=== PATIENT | male | born 1950 | race Caucasian/White ===

== ENCOUNTER 2020-09-16 16:17 | Observation (INO) | payer MEDICARE, OTHER ==
[2020-09-16] MEDS ORDERED: ASPIRIN 81 MG PO STA (16:33)
[2020-09-16] MEDS ORDERED: NITROGLYCERIN OINT 1 INCH/GM PACKET TOPICAL STA (16:33)
--- NOTE | 2020-09-16 16:53 | ED ---
General Adult HPI - General Chief complaint: Recheck/Abnormal Lab/Rx Stated complaint: abnormal labs/ekg Time Seen by Provider: 09/16/20 16:20 Source: patient, RN notes reviewed, old records reviewed Mode of arrival: ambulatory Limitations: no limitations - History of Present Illness Initial comments: This is a 69-year-old male who presents emergency Department because he went in for a physical and is primary medical care doctor thought that his EKG was abnormal and then she did a troponin the troponin came back 0.037. Patient's having no symptoms. Patient denies chest pain difficulty breathing shortness of breath. Patient denies any back pain. Patient denies lightheadedness or dizziness. Patient denies any swelling to legs or calf tenderness. Patient states he feels perfectly fine. Patient denies any recent fever chills or cough. Patient states he plays ice hockey last night. - Related Data Home Medications Medication Instructions Recorded Confirmed Ascorbic Acid [Vitamin C] 1,000 mg PO HS 09/16/20 09/16/20 Aspirin EC [Ecotrin Low Dose] 81 mg PO HS 09/16/20 09/16/20 Cholecalciferol [Vitamin D3 (25 2,000 unit PO DAILY@1200 09/16/20 09/16/20 Mcg = 1000 Iu)] Lovastatin [Mevacor] 20 mg PO HS 09/16/20 09/16/20 Multivitamins, Thera [Multivitamin 1 tab PO HS 09/16/20 09/16/20 (formulary)] Zinc 50 mg PO DAILY@1200 09/16/20 09/16/20 lisinopriL 20 mg PO HS 09/16/20 09/16/20 Allergies Allergy/AdvReac Type Severity Reaction Status Date / Time No Known Allergies Allergy Verified 09/16/20 17:46 Review of Systems ROS Statement: Those systems with pertinent positive or pertinent negative responses have been documented in the HPI. ROS Other: All systems not noted in ROS Statement are negative. Past Medical History Past Medical History: No Reported History History of Any Multi-Drug Resistant Organisms: None Reported Past Surgical History: Back Surgery, Orthopedic Surgery Additional Past Surgical History / Comment(s): rhinoplasty,rt hand Smoking Status: Never smoker Past Alcohol Use History: None Reported Past Drug Use History: None Reported General Exam - General Exam Comments Initial Comments: GENERAL: Patient is well-developed and well-nourished. Patient is nontoxic and well- hydrated and is in no acute distress. ENT: Neck is soft and supple. No significant lymphadenopathy is noted. Oropharynx is clear. Moist mucous membranes. Neck has full range of motion without eliciting any pain. EYES: The sclera were anicteric and conjunctiva were pink and moist. Extraocular movements were intact and pupils were equal round and reactive to light. Eyelids were unremarkable. PULMONARY: Unlabored respirations. Good breath sounds bilaterally. No audible rales rhonchi or wheezing was noted. CARDIOVASCULAR: There is a regular rate and rhythm without any murmurs gallops or rubs. ABDOMEN: Soft and nontender with normal bowel sounds. SKIN: Skin is clear with no lesions or rashes and otherwise unremarkable. NEUROLOGIC: Patient is alert and oriented x3. Cranial nerves II through XII are grossly intact. Motor and sensory are also intact. Normal speech, volume and content. Symmetrical smile. MUSCULOSKELETAL: Normal extremities with adequate strength and full range of motion. No lower extremity swelling or edema. No calf tenderness. LYMPHATICS: No significant lymphadenopathy is noted PSYCHIATRIC: Normal psychiatric evaluation. Limitations: no limitations Course Vital Signs 09/16/20 16:19 Temperature 97.8 F Pulse Rate 64 Respiratory 20 Rate Blood Pressure 146/82 O2 Sat by Pulse 99 Oximetry Medical Decision Making - Medical Decision Making EKG shows normal sinus rhythm at 60 bpm MA interval is 166 QRS is 90 QT interval 400 QTC is 400 per patient's EKG shows no ST segment elevation or depression. Patient does have Q waves in leads V1 and V2 Chest x-ray shows no acute abnormality. Patient has remained chest pain free throughout the ED stay. I spoke with Dr. Akins she agreed to admit the patient admitted the patient I wrote admitting orders - Lab Data Result diagrams: 09/16/20 16:45 09/16/20 16:45 Lab Results 09/16/20 09/16/20 09/16/20 Range/Units 16:45 16:45 16:45 WBC 8.2 (3.8-10.6) k/uL RBC 4.72 (4.30-5.90) m/uL Hgb 14.9 (13.0-17.5) gm/dL Hct 43.0 (39.0-53.0) % MCV 91.0 (80.0-100.0) fL MCH 31.5 (25.0-35.0) pg MCHC 34.6 (31.0-37.0) g/dL RDW 13.0 (11.5-15.5) % Plt Count 215 (150-450) k/uL MPV 8.0 Neutrophils % 60 % Lymphocytes % 28 % Monocytes % 6 % Eosinophils % 3 % Basophils % 1 % Neutrophils # 4.9 (1.3-7.7) k/uL Lymphocytes # 2.3 (1.0-4.8) k/uL Monocytes # 0.5 (0-1.0) k/uL Eosinophils # 0.2 (0-0.7) k/uL Basophils # 0.1 (0-0.2) k/uL PT 10.4 (9.0-12.0) sec INR 1.0 (<1.2) APTT 26.7 (22.0-30.0) sec Sodium 139 (137-145) mmol/L Potassium 4.5 (3.5-5.1) mmol/L Chloride 105 (98-107) mmol/L Carbon Dioxide 29 (22-30) mmol/L Anion Gap 5 mmol/L BUN 23 H (9-20) mg/dL Creatinine 1.14 (0.66-1.25) mg/dL Est GFR (CKD-EPI)AfAm 76 (>60 ml/min/1.73 sqM) Est GFR (CKD-EPI)NonAf 66 (>60 ml/min/1.73 sqM) Glucose 89 (74-99) mg/dL Calcium 9.7 (8.4-10.2) mg/dL Magnesium 2.4 H (1.6-2.3) mg/dL Total Bilirubin 0.6 (0.2-1.3) mg/dL AST 33 (17-59) U/L ALT 22 (4-49) U/L Alkaline Phosphatase 73 (38-126) U/L Troponin I (0.000-0.034) ng/mL Total Protein 7.3 (6.3-8.2) g/dL Albumin 4.4 (3.5-5.0) g/dL 09/16/20 Range/Units 16:45 WBC (3.8-10.6) k/uL RBC (4.30-5.90) m/uL Hgb (13.0-17.5) gm/dL Hct (39.0-53.0) % MCV (80.0-100.0) fL MCH (25.0-35.0) pg MCHC (31.0-37.0) g/dL RDW (11.5-15.5) % Plt Count (150-450) k/uL MPV Neutrophils % % Lymphocytes % % Monocytes % % Eosinophils % % Basophils % % Neutrophils # (1.3-7.7) k/uL Lymphocytes # (1.0-4.8) k/uL Monocytes # (0-1.0) k/uL Eosinophils # (0-0.7) k/uL Basophils # (0-0.2) k/uL PT (9.0-12.0) sec INR (<1.2) APTT (22.0-30.0) sec Sodium (137-145) mmol/L Potassium (3.5-5.1) mmol/L Chloride (98-107) mmol/L Carbon Dioxide (22-30) mmol/L Anion Gap mmol/L BUN (9-20) mg/dL Creatinine (0.66-1.25) mg/dL Est GFR (CKD-EPI)AfAm (>60 ml/min/1.73 sqM) Est GFR (CKD-EPI)NonAf (>60 ml/min/1.73 sqM) Glucose (74-99) mg/dL Calcium (8.4-10.2) mg/dL Magnesium (1.6-2.3) mg/dL Total Bilirubin (0.2-1.3) mg/dL AST (17-59) U/L ALT (4-49) U/L Alkaline Phosphatase (38-126) U/L Troponin I 0.030 (0.000-0.034) ng/mL Total Protein (6.3-8.2) g/dL Albumin (3.5-5.0) g/dL Disposition Clinical Impression: Chest pain Disposition: ADMITTED IP TO THIS [facility] Referrals: Mayra Murrell MD [Primary Care Provider] - 1-2 days Time of Disposition: 18:28
[2020-09-16 16:55] LABS: Basophils # (A) 0.1 k/uL (0-0.2); Basophils % (A) 1 %; Eosinophils # (A) 0.2 k/uL (0-0.7); Eosinophils % (A) 3 %; HGB 14.9 gm/dL (13.0-17.5); Lymphocytes # (A) 2.3 k/uL (1.0-4.8); Lymphocytes % (A) 28 %; MCH 31.5 pg (25.0-35.0); MCHC 34.6 g/dL (31.0-37.0); Monocytes # (A) 0.5 k/uL (0-1.0); Monocytes % (A) 6 %; Neutrophils # (A) 4.9 k/uL (1.3-7.7); Neutrophils % (A) 60 %; Platelet Count 215 k/uL (150-450); RBC 4.72 m/uL (4.30-5.90); WBC 8.2 k/uL (3.8-10.6)
[2020-09-16 17:10] LABS: Partial Thromboplastin Time 26.7 sec (22.0-30.0); Prothrombin Time 10.4 sec (9.0-12.0)
[2020-09-16 17:11] LABS: Albumin 4.4 g/dL (3.5-5.0); Calcium 9.7 mg/dL (8.4-10.2); Magnesium 2.4 mg/dL (1.6-2.3); Potassium 4.5 mmol/L (3.5-5.1); Total Bilirubin 0.6 mg/dL (0.2-1.3); Total Protein 7.3 g/dL (6.3-8.2)
--- NOTE | 2020-09-16 18:05 | XR ---
EXAMINATION TYPE: XR chest 2V DATE OF EXAM: 09/16/2020 COMPARISON: NONE HISTORY: Chest pain TECHNIQUE: 2 views FINDINGS: Heart and mediastinum are normal. Lungs are clear. Diaphragm is normal. Bony thorax appears normal. IMPRESSION: Normal chest.
[2020-09-16] MEDS ORDERED: NITROGLYCERIN SL TABS 0.4 MG TAB SUBLINGUAL PRN (18:33)
[2020-09-16 19:02] VITALS: RESP 16
--- NOTE | 2020-09-17 01:03 | P.HPIM ---
History of Present Illness H&P Date: 09/16/20 Chief Complaint: Abnormal EKG 69-year-old male with hypertension and hyperlipidemia Patient comes in tract admission from PCP due to abnormal EKG while doing his annual physical patient otherwise denies any complaints patient blood work also reported from PCP office to have slightly elevated troponin again patient denies any chest pain or trouble breathing denies any diaphoresis nausea vomiting denies any exercise intolerance or exertional dyspnea Patient admits that he shoveled snow yesterday with no limitations today he went to [employer] with no limitations He believes that these and good health overall he has hypertension controlled with lisinopril he denies any family history of premature CAD denies any smoking admits to occasional alcohol use on special occasions In the ED his EKG showed normal sinus rhythm Troponins were within normal limits Patient admitted for further cardiac work Review of Systems Pertinent positives as noted in HPI. All other systems were reviewed and are negative Past Medical History Past Medical History: No Reported History, Hyperlipidemia, Hypertension History of Any Multi-Drug Resistant Organisms: None Reported Past Surgical History: Back Surgery, Orthopedic Surgery Additional Past Surgical History / Comment(s): rhinoplasty,rt hand Smoking Status: Never smoker Past Alcohol Use History: None Reported Past Drug Use History: None Reported - Past Family History Family Additional Family Medical History / Comment(s): Maternal uncle of heart attack in his mid 60s Medications and Allergies Home Medications Medication Instructions Recorded Confirmed Type Ascorbic Acid [Vitamin C] 1,000 mg PO HS 09/16/20 09/16/20 History Aspirin EC [Ecotrin Low Dose] 81 mg PO HS 09/16/20 09/16/20 History Cholecalciferol [Vitamin D3 (25 2,000 unit PO DAILY@1200 09/16/20 09/16/20 History Mcg = 1000 Iu)] Lovastatin [Mevacor] 20 mg PO HS 09/16/20 09/16/20 History Multivitamins, Thera [Multivitamin 1 tab PO HS 09/16/20 09/16/20 History (formulary)] Zinc 50 mg PO DAILY@1200 09/16/20 09/16/20 History lisinopriL 20 mg PO HS 09/16/20 09/16/20 History Allergies Allergy/AdvReac Type Severity Reaction Status Date / Time No Known Allergies Allergy Verified 09/16/20 17:46 Physical Exam Vitals: Vital Signs Temp Pulse Resp BP Pulse Ox 09/16/20 19:01 59 L 16 96/64 98 09/16/20 16:19 97.8 F 64 20 146/82 99 Intake and Output 09/16/20 09/16/20 09/16/20 06:59 14:59 22:59 Other: Weight 83.915 kg Constitutional: No acute distress, conversant, pleasant Eyes: Anicteric sclerae, moist conjunctiva, Pupils equal round reactive to light ENMT: NC/AT Oropharynx clear, no erythema, or exudates Neck: Supple, FROM, no masses, or JVD No carotid bruits No thyromegaly Lungs: Clear to auscultation Clear to percussion Normal respiratory effort, no accessory muscle use Cardiovascular: Heart regular in rate and rhythm, No murmurs, gallops, or rubs No peripheral edema Abdominal: Soft Nontender, no guarding, rebound or rigidity Abdomen moving with respiration Normoactive bowel sounds No hepatomegaly, No splenomegaly No palpable mass No abdominal wall hernia noted Skin: Normal temperature, tone, texture, turgor No induration No subcutaneous nodules No rash, lesions No ulcers Extremities: No digital cyanosis No clubbing Pedal pulses intact and symmetrical Radial pulses intact and symmetrical No calf tenderness Psychiatric: Alert and oriented to person, place and time Appropriate affect fair judgement Neuro Muscles Strength 5/5 in all 4 extremities Sensation to light touch grossly present throughout Cranial nerves II-XII grossly intact No focal sensory deficits Lymphatics: no palpable cervical or supraclavicular , or inguinal lymph nodes Results CBC & Chem 7: 09/16/20 16:45 09/16/20 16:45 Labs: Abnormal Lab Results - Last 24 Hours (Table) 09/16/20 Range/Units 16:45 BUN 23 H (9-20) mg/dL Magnesium 2.4 H (1.6-2.3) mg/dL Assessment and Plan Assessment: Abnormal EKG Direct admission from PCP office to rule out acute coronary syndrome Trend troponins Cardiac monitoring Cardiology consult Continue statin and aspirin Hypertension controlled Continue lisinopril Hyperlipidemia on statin CODE STATUS: Full code DVT prophylaxis heparin subcu 3 times a day Discussed with: Patient, ER, RN Anticipated length of stay less than [address]: Home A total of 60 minutes was spent on the care of this complex patient more than 50% of the time was spent in counseling and care coordination.
[2020-09-17] MEDS: NITROGLYCERIN OINT 1 INCH/GM PACKET TOPICAL SCH ×2 (02:22→05:57)
[2020-09-17 02:52] LABS: Cholesterol 161 mg/dL (<200); HDL Cholesterol 42 mg/dL (40-60); LDL Cholesterol,Calculated 96 mg/dL (0-99); Triglycerides 117 mg/dL (<150)
[2020-09-17] MEDS ORDERED: HEPARIN SODIUM,PORCINE 5,000 UNIT/ML 1 ML VIAL SQ SCH (08:00)
[2020-09-17] MEDS ORDERED: ASPIRIN 325 MG TAB PO SCH (09:00)
--- NOTE | 2020-09-17 09:16 | P.CRDCN ---
History of Present Illness Consult date: 09/17/20 History of present illness: CHIEF COMPLAINT: Abnormal EKG HISTORY OF PRESENT ILLNESS: This is a 69-year old male with a past medical history significant for hypertension and hyperlipidemia. 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 We have been asked to see the patient in consultation for abnormal EKG. Patient examined this morning at the bedside in the observation unit. Patient states he went to see his PCP, Dr. Murrell, for a annual physical. An EKG was completed at that time which he states he was told there was some abnormalities on his EKG. The patient had a troponin level drawn at the office as well which resulted at 0.03. The patient was called at home and told to go to the emergency room for further evaluation. The patient denies any chest pain or pressure. He denies any shortness of breath. Denies dizziness or lightheadedness. No congestion or cough. No nausea or vomiting. The patient is a lifetime nonsmoker. He reports he is very active and works out in his yard 1-2 days a week and also plays hockey once a week. DIAGNOSTICS: EKG reveals sinus mechanism with Q waves in V1 and V2 and T-wave inversions in V1-V3 Chest xray negative for acute process Laboratory data: WBC 8.2. Hemoglobin 14.9. Platelet count 215. Sodium 139. Potassium 4.5. BUN 23. Creatinine 1.14. Magnesium 2.4. Troponin 0.030. 0.028. 0.021. Cholesterol 161. LDL 96. HDL 42. Current home cardiac medications include aspirin 81 mg daily, lisinopril 20 mg daily, and lovastatin 20 mg daily REVIEW OF SYSTEMS: At the time of my exam: CONSTITUTIONAL: Denies fever or chills. HEENT: Denies blurred vision, vision changes, or eye pain. Denies hemoptysis CARDIOVASCULAR: Denies chest pain, orthopnea, PND or palpitations RESPIRATORY: No shortness of breath. GASTROINTESTINAL: Denies abdominal pain. Denies nausea or vomiting. HEMATOLOGIC: Denies bleeding disorders. GENITOURINARY: Denies any blood in urine. SKIN: Denies pruitis. Denies rash. PHYSICAL EXAM: VITAL SIGNS: Reviewed. GENERAL: Well-developed in no acute distress. HEENT: Head is normocephalic. Pupils are equal, round. Sclerae anicteric. Mucous membranes of the mouth are moist. Neck supple. No JVD or thyromegaly LUNGS: Respirations even and unlabored. Lungs essentially clear to auscultation bilaterally. HEART: Regular rate and rhythm. S1 and S2 heard. ABDOMEN: Soft. Nondistended. Nontender. EXTREMITIES: Normal range of motion. No clubbing or cyanosis. Peripheral pulse s intact. No lower extremity edema NEUROLOGIC: Awake and alert. Oriented x 3. ASSESSMENT: Abnormal EKG with no complaints of chest pain, troponin negative x 3 Hypertension Hyperlipidemia PLAN: An acute coronary event has been ruled out Resume home cardiac medications Obtain 2-D echo to assess cardiac structure and function Obtained exercise stress test today to assess for reversible ischemia If echo does not reveal any significant abnormalities and stress test is negative, patient may be discharged home from a cardiac perspective Nurse practitioner note has been reviewed by physician. Signing provider agrees with the documented findings, assessment, and plan of care. Past Medical History Past Medical History: No Reported History, Hyperlipidemia, Hypertension History of Any Multi-Drug Resistant Organisms: None Reported Past Surgical History: Back Surgery, Orthopedic Surgery Additional Past Surgical History / Comment(s): rhinoplasty,rt hand Smoking Status: Never smoker Past Alcohol Use History: None Reported Past Drug Use History: None Reported - Past Family History Family Additional Family Medical History / Comment(s): Maternal uncle of heart attack in his mid 60s Medications and Allergies Home Medications Medication Instructions Recorded Confirmed Type Ascorbic Acid [Vitamin C] 1,000 mg PO HS 09/16/20 09/16/20 History Aspirin EC [Ecotrin Low Dose] 81 mg PO HS 09/16/20 09/16/20 History Cholecalciferol [Vitamin D3 (25 2,000 unit PO DAILY@1200 09/16/20 09/16/20 History Mcg = 1000 Iu)] Lovastatin [Mevacor] 20 mg PO HS 09/16/20 09/16/20 History Multivitamins, Thera [Multivitamin 1 tab PO HS 09/16/20 09/16/20 History (formulary)] Zinc 50 mg PO DAILY@1200 09/16/20 09/16/20 History lisinopriL 20 mg PO HS 09/16/20 09/16/20 History Allergies Allergy/AdvReac Type Severity Reaction Status Date / Time No Known Allergies Allergy Verified 09/16/20 17:46 Physical Exam Vitals: Vital Signs Temp Pulse Pulse Resp BP BP Pulse Ox 09/17/20 06:42 130/74 09/17/20 04:25 97.9 F 60 16 98/55 97 09/16/20 21:35 98.1 F 63 16 103/55 99 09/16/20 19:01 59 L 16 96/64 98 09/16/20 16:19 97.8 F 64 20 146/82 99 Intake and Output 09/16/20 09/17/20 09/17/20 22:59 06:59 14:59 Other: Voiding Method Toilet Toilet # Voids 2 1 Weight 83.915 kg Results 09/16/20 16:45 09/16/20 16:45 Cardiac Enzymes 09/16/20 09/16/20 09/16/20 Range/Units 16:45 16:45 19:20 AST 33 (17-59) U/L Troponin I 0.030 0.028 (0.000-0.034) ng/mL 09/16/20 Range/Units 22:35 AST (17-59) U/L Troponin I 0.021 (0.000-0.034) ng/mL Coagulation 09/16/20 Range/Units 16:45 PT 10.4 (9.0-12.0) sec APTT 26.7 (22.0-30.0) sec Lipids 09/16/20 Range/Units 16:45 Triglycerides 117 (<150) mg/dL Cholesterol 161 (<200) mg/dL HDL Cholesterol 42 (40-60) mg/dL CBC 09/16/20 Range/Units 16:45 WBC 8.2 (3.8-10.6) k/uL RBC 4.72 (4.30-5.90) m/uL Hgb 14.9 (13.0-17.5) gm/dL Hct 43.0 (39.0-53.0) % Plt Count 215 (150-450) k/uL Comprehensive Metabolic Panel 09/16/20 Range/Units 16:45 Sodium 139 (137-145) mmol/L Potassium 4.5 (3.5-5.1) mmol/L Chloride 105 (98-107) mmol/L Carbon Dioxide 29 (22-30) mmol/L BUN 23 H (9-20) mg/dL Creatinine 1.14 (0.66-1.25) mg/dL Glucose 89 (74-99) mg/dL Calcium 9.7 (8.4-10.2) mg/dL AST 33 (17-59) U/L ALT 22 (4-49) U/L Alkaline Phosphatase 73 (38-126) U/L Total Protein 7.3 (6.3-8.2) g/dL Albumin 4.4 (3.5-5.0) g/dL Current Medications Generic Name Dose Route Start Last Admin Trade Name Freq PRN Reason Stop Dose Admin Aspirin 81 mg 09/17/20 21:00 Aspirin 81 Mg PO HS [facility]O Atorvastatin Calcium 10 mg 09/17/20 21:00 Atorvastatin 10 Mg Tab PO HS [facility] Heparin Sodium (Porcine) 5,000 unit 09/17/20 08:00 09/17/20 08:21 Heparin Sodium,Porcine 5,000 Unit/Ml 1 Ml Vial SQ Not Given Q8HR [facility]O Lisinopril 20 mg 09/17/20 21:00 Lisinopril 20 Mg Tab PO HS [facility] Nitroglycerin 0.4 mg 09/16/20 18:33 Nitroglycerin Sl Tabs 0.4 Mg Tab SUBLINGUAL Q5M PRN Chest Pain Intake and Output 09/16/20 09/17/20 09/17/20 22:59 06:59 14:59 Other: Voiding Method Toilet Toilet # Voids 2 1 Weight 83.915 kg 09/16/20 16:45 09/16/20 16:45
[2020-09-17 09:29] VITALS: BP 128/81; PULSE 56; TEMP 97.7
--- NOTE | 2020-09-17 11:00 | ECHOF ---
Referral Reason:LV function MEASUREMENTS -------- HEIGHT: 175.3 cm WEIGHT: 83.9 kg BP: RVIDd: 2.6 cm (< 3.3) IVSd: 0.9 cm (0.6 - 1.1) LVIDd: 4.0 cm (3.9 - 5.3) LVPWd: 1.2 cm (0.6 - 1.1) IVSs: 1.4 cm LVIDs: 2.8 cm LVPWs: 1.4 cm LA Diam: 3.5 cm (2.7 - 3.8) LAESV Index (A-L): 28.87 ml/m Ao Diam: 2.8 cm (2.0 - 3.7) AV Cusp: 1.5 cm (1.5 - 2.6) MV EXCURSION: 18.742 mm (> 18.000) MV EF SLOPE: 93 mm/s (70 - 150) EPSS: 0.2 cm MV E Daniel: 0.67 m/s MV DecT: 172 ms MV A Daniel: 0.70 m/s MV E/A Ratio: 0.95 RAP: 5.00 mmHg RVSP: 11.68 mmHg FINDINGS -------- Sinus rhythm. This was a technically good study. LV size, wall thickness and systolic function are normal, with an EF greater than 55%. The left stephanie tricular size is normal. The right ventricle is normal in size. Normal LA size by volume 22+/-6 ml/m2. The right atrial size is normal. The aortic valve is trileaflet, and appears structurally normal. No aortic stenosis or regurgitation. The mitral valve is normal. Mild mitral regurgitation is present. The tricuspid valve appears structurally normal. Mild tricuspid regurgitation present. Right vent ricular systolic pressure is normal at < 35 mmHg. Trace/mild (physiologic) pulmonic regurgitation. The aortic root size is normal. There is no pericardial effusion. CONCLUSIONS -------- 1. LV size, wall thickness and systolic function are normal, with an EF greater than 55%. 2. Normal LA size by volume 22+/-6 ml/m2. 3. The aortic valve is trileaflet, and appears structurally normal. No aortic stenosis or regurgitati on. 4. Mild mitral regurgitation is present. 5. Mild tricuspid regurgitation present. 6. Trace/mild (physiologic) pulmonic regurgitation. 7. There is no pericardial effusion. MANAGER DOMESTIC: Chasidy Julio RDCS
--- NOTE | 2020-09-17 13:31 | P.DS ---
Providers Date of admission: 09/16/20 18:34 Expected date of discharge: 09/17/20 Attending physician: Mercedes Akins, Consults: 09/16/20 18:33 Consult Physician Urgent Consulting Provider: [facility] Consult Reason/Comments: Chest pain Do you want consulting provider notified?: Yes Primary care physician: [facility] Course: 69-year-old male with hypertension and hyperlipidemia who presented as a direct admission from PCP's office due to abnormal EKG while doing his annual physical. EKG at the office revealed ST elevation in V2, and slight elevation in V1. In addition trops drawn at the office was slightly up. Patient otherwise denies any complaints. No chest pain or trouble breathing, diaphoresis, nausea vomiting. No exercise intolerance or exertional dyspnea. No family history of premature CAD, no hx of smoking, admits to occasional alcohol use on special occasions. In the ED his EKG showed normal sinus rhythm with no significant ST or T wave abnormalities. ST was noted to be slightly up in V2 but rest of EKG looked ok. It was repeated multiple times with the same results. Upon admission troponins were within normal limits. Patient was admitted to observation, he was monitored on telemetry which did not reveal any changes. Troponin was cycled and it was normal. Patient did not complain of any symptoms. Patient had an extensive workup with an exercise stress test as well as an echocardiogram both of which came back negative and reassuring. Patient was evaluated by cardiology who felt that the EKG findings at the office were nonspecific. Patient was cleared for discharge by cardiology. He will be discharged home in a stable condition. Plan - Discharge Summary Discharge Rx Participant: No New Discharge Prescriptions: Continue Aspirin EC [Ecotrin Low Dose] 81 mg PO HS Zinc 50 mg PO DAILY@1200 Cholecalciferol [Vitamin D3 (25 Mcg = 1000 Iu)] 2,000 unit PO DAILY@1200 Ascorbic Acid [Vitamin C] 1,000 mg PO HS lisinopriL 20 mg PO HS Multivitamins, Thera [Multivitamin (formulary)] 1 tab PO HS Lovastatin [Mevacor] 20 mg PO HS Discharge Medication List Ascorbic Acid [Vitamin C] 1,000 mg PO HS 09/16/20 [History] Aspirin EC [Ecotrin Low Dose] 81 mg PO HS 09/16/20 [History] Cholecalciferol [Vitamin D3 (25 Mcg = 1000 Iu)] 2,000 unit PO DAILY@1200 09/16/20 [History] Lovastatin [Mevacor] 20 mg PO HS 09/16/20 [History] Multivitamins, Thera [Multivitamin (formulary)] 1 tab PO HS 09/16/20 [History] Zinc 50 mg PO DAILY@1200 09/16/20 [History] lisinopriL 20 mg PO HS 09/16/20 [History] Follow up Appointment(s)/Referral(s): Mayra Murrell MD [Primary Care Provider] - 1-2 days
--- NOTE | 2020-09-17 13:52 | ECHOS ---
STRESS ECHOCARDIOGRAM LUMASON: N/A Vial INDICATIONS: Abnormal EKG. MEDICATIONS: BASELINE HEART RATE: 74 BASELINE BLOOD PRESSURE: 154/80 MAXIMUM HEART RATE: 166 MAXIMUM BLOOD PRESSURE: 180/65 85% MPHR: 129 100% MPHR: 152 METS: 14.1 MAXIMUM STAGE REACHED: 5 TOTAL EXERCISE TIME: 13:56 CLINICAL INFORMATION: Baseline rhythm is a sinus mechanism, rate of 74, normal axis and intervals. T-wave inversion in V1 and V2. Baseline blood pressure 154/80 mmHg. Patient exercised on Kishan protocol for 13 minute 56 seconds reaching peak rate 166 beats per minute which is above his 100% maximum predicted heart rate. Peak blood pressure 180/65 mmHg. Test was terminated due to fatigue. There was no chest pain. Electrocardiograph monitoring revealed no evidence of diagnostic ischemic ST deviation. FINDINGS: Baseline echocardiogram revealed normal wall motion. At peak exercise, there was normal wall thickening and motion without any hypokinesis or dyskinesis. CONCLUSION: 1. Excellent exercise tolerance with rare PVCs and normal echocardiograph response to exercise. 2. Normal stress echocardiogram with no evidence of stress-induced ischemia. MMODL / IJN: [id number] /
[2020-09-17] MEDS ORDERED: ASPIRIN 81 MG PO SCH (21:00)
[2020-09-17] MEDS ORDERED: lisinopriL 20 MG TAB PO SCH (21:00)
[2020-09-17] MEDS ORDERED: ATORVASTATIN 10 MG TAB PO SCH (21:00)
== END 2020-09-17 14:14 | disposition home or self-care (01) ==
LOC: EC 16:17 → 1SOBS 18:34
PROVIDERS: ADMIT Internal Medicine; ATTEND Internal Medicine
DX: R94.31 Abnormal electrocardiogram [ECG] [EKG] (principal); R79.89 Other specified abnormal findings of blood chemistry; I10 Essential (primary) hypertension; E78.5 Hyperlipidemia, unspecified; Z79.82 Long term (current) use of aspirin; Z79.899 Other long term (current) drug therapy; Z98.890 Other specified postprocedural states; Z82.49 Family history of ischemic heart disease and other diseases of the circulatory system
CPT/HCPCS: 93005 ×2; 99285; 36415; 93306; 93351; 80061; 80053; 83735; 84484; 85025; 85610; 85730; 71046; G0378 ×2; 81003; 82550; 82553; 83036; 83615